=== PATIENT | male | born 1965 | race Caucasian/White ===

== ENCOUNTER 2017-07-07 17:39 | Emergency (ER) | payer OTHER ==
[2017-07-07] MEDS: METHYLPREDNISOLONE 125 MG INJ IM (20:34)
[2017-07-07] MEDS: IPRATROPIUM (NEB) 0.5 MG/2.5 ML AMP HHN (20:44)
[2017-07-07] MEDS: ALBUTEROL 0.083% (NEB) 2.5 MG/3 ML AMP HHN (20:46)
== END 2017-07-07 21:45 | disposition home or self-care (01) ==
LOC: FTE 17:39
DX: J20.9 Acute bronchitis, unspecified (principal); J45.901 Unspecified asthma with (acute) exacerbation; H66.93 Otitis media, unspecified, bilateral
CPT/HCPCS: 87400; 93005; 94664; 96372; 99284-25

== ENCOUNTER 2017-08-23 08:39 | Emergency (ER) | payer OTHER ==
[2017-08-23] MEDS: IBUPROFEN 200 MG TAB PO (09:38)
== END 2017-08-23 10:37 | disposition home or self-care (01) ==
LOC: FTE 08:39
DX: R50.9 Fever, unspecified (principal); R05 Cough; R51 Headache; J45.909 Unspecified asthma, uncomplicated
CPT/HCPCS: 87400; 99283

== ENCOUNTER 2017-12-17 07:58 | Day surgery (SDC) | payer OTHER ==
[2017-12-17] MEDS ORDERED: FENTAnyl 50 MCG/ML VIAL (10:43)
[2017-12-17] MEDS ORDERED: MIDAZOLAM 1 MG/ML 2 ML INJ ×2 (10:44)
== END 2017-12-17 11:28 | disposition home or self-care (01) ==
LOC: GIL 07:58
DX: Z12.11 Encounter for screening for malignant neoplasm of colon (principal); D12.5 Benign neoplasm of sigmoid colon; K64.8 Other hemorrhoids
CPT/HCPCS: 45380; 88305

== ENCOUNTER 2018-11-11 17:31 | Emergency (ER) | payer OTHER ==
[2018-11-11] MEDS: TETRACAINE 0.5% 4 ML OPH RIGHT EYE (19:00)
[2018-11-11] MEDS: FLUORESCEIN STRIP RIGHT EYE (21:22)
[2018-11-11] MEDS: ERYTHROMYCIN 1 GM OPH OINT RIGHT EYE (21:24)
== END 2018-11-11 21:57 | disposition home or self-care (01) ==
LOC: FTE 17:31
DX: S05.01XA Injury of conjunctiva and corneal abrasion without foreign body, right eye, initial encounter (principal); X58.XXXA Exposure to other specified factors, initial encounter; Y28.9XXA Contact with unspecified sharp object, undetermined intent, initial encounter
CPT/HCPCS: 99283